=== PATIENT | female | born 1975 | race Caucasian/White ===

== ENCOUNTER 2023-07-10 15:27 | Outpatient (CLI) | payer MEDICAID | END 2023-07-10 23:59 | disposition home or self-care (01) | LOC: RAD 15:27 | PROVIDERS: ATTEND Family Medicine | DX: M25.521 Pain in right elbow (principal) | CPT/HCPCS: 73080 ==

== ENCOUNTER 2024-08-22 12:26 | Outpatient (CLI) | payer MEDICAID ==
--- NOTE | 2024-08-22 16:52 | RADIOLOGY REPORT ---
EXAM: US ULTRASOUND HEAD NECK HISTORY: LOCALIZED SWELLING, MASS AND LUMP, NECK COMPARISON: None TECHNIQUE: Real-time sonographic imaging was performed of the thyroid gland using grayscale and color flow imaging with a high-frequency linear transducer. FINDINGS: Right lobe measures 4.3 cm in length. Isthmus measures 0.3 cm in thickness. Left lobe measures 4.1 cm in length. Nodule #1 Location: Left lobe midpole Size: 3.4 cm Composition: Mixed solid and cystic Echogenicity: Hypoechoic Shape: Oval Margin: Smooth Echogenic foci: None TR- 4 Nodule #2 Location: Right lobe, midpole Size: 1 cm Composition: Mixed solid and cystic Echogenicity: Hypoechoic Shape: Oval Margin: Smooth Echogenic foci: Numerous TR- 5 IMPRESSION: 1. Single suspicious lesion seen in each lobe and both lesions should be further evaluated with FNA. [employer] TI-RADS Categories and Recommendations (2017): TR1: 0 points, Benign, No FNA TR2: 2 points, Not suspicious, No FNA TR3: 3 points, Mildly suspicious, FNA if > or = 2.5 cm, Follow if > or = 1.5 cm TR4: 4-6 points, Moderately Suspicious, FNA if > or = 1.5 cm, Follow if > or = 1.0 cm TR5: 7+ points, Highly Suspicious, FNA if > or = 1.0 cm, Follow if > or = 0.5 cm Follow-up ultrasound guidelines: TR5: yearly for 5 years, if no growth or change in TI-RADS level TR4: at 1, 2, 3 and 5 years, if no growth or change in TI-RADS level TR3: at 1, 3 and 5 years, if no growth or change in TI-RADS level If increased but below threshold for FNA, repeat in one year. Source: A[employer] Thyroid Imaging, Reporting and Data System (TI-RADS): White Paper of the [employer] TI-RADS Committee. Lauren et al., J Am [employer] Radiol 2017;14:587-595.
== END 2024-08-22 23:59 | disposition home or self-care (01) ==
LOC: US 12:26
PROVIDERS: ATTEND Family Medicine
DX: R22.1 Localized swelling, mass and lump, neck (principal)
CPT/HCPCS: 76536